=== PATIENT | female | born 1940 | race Two or more races ===

== ENCOUNTER 2021-04-28 18:37 | Emergency (ER) | payer MEDICARE, OTHER ==
[~2021-04-28] VITALS: Ht 157.5 cm; Wt 53.0 kg
--- NOTE | 2021-04-28 18:41 | NUR ---
1820 code neuro paged 182 dr ng paged 182 dr ng spoke with dr vargas 183 pt arrived to ed.
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
[2021-04-28] MEDS ORDERED: OMNIPAQUE 350 MG/ML, 100ML BOTTLE ONE (19:00)
--- NOTE | 2021-04-28 19:07 | NUR ---
PT HAS RETURNED FROM CT WITH JONHSON RN, ASSUMED CARE OF PT, REPORT FROM JOHNSON.
[2021-04-28 19:08] VITALS: BP 153/58
[2021-04-28 19:12] LABS: BASOPHILS % (AUTO) 1 % (0-1); EOSINOPHILS % (AUTO) 4 % (1-7); LYMPHOCYTES % (AUTO) 34 % (22-44); MEAN CORPUSCULAR HEMOGLOBIN 32.4 pg (27.0-34.8); MEAN CORPUSCULAR HGB CONC 33.7 g/dL (32.4-35.8); MONOCYTES % (AUTO) 11 % (2-9); NEUTROPHILS % (AUTO) 51 % (42-75); PLATELET COUNT 274 x10^3/uL (130-400); RED BLOOD COUNT 4.06 x10^6/uL (3.82-5.3); RED CELL DISTRIBUTION WIDTH 13.7 % (9.6-15.2)
--- NOTE | 2021-04-28 19:22 | NUR ---
POC DISCUSSED WITH DR GONZALEZ PT TO TRANSFER TO [facility]
[2021-04-28 19:24] LABS: INTERNATIONAL NORMALIZED RATIO 1.05 (0.93-1.1); PROTHROMBIN TIME 11.2 Seconds (9.6-11.5)
[2021-04-28] MEDS ORDERED: SODIUM CHLORIDE FLUSH 10ML SYR IVF ONE (19:30)
--- NOTE | 2021-04-28 19:35 | NUR ---
PTS DEFICITS RESOLVED SINCE ASSESMENT AND PT CAN NOW MOVE ALL EXTREMITIES AND SPEEK WITHOUT SLURRED SPEECH
--- NOTE | 2021-04-28 19:57 | NUR ---
REPORT TO OUTREACH EDUCATOR AT [facility]
--- NOTE | 2021-04-28 20:10 | NUR ---
[facility] AT BED SIDE FOR TRANSPORT AT THIS TIME PT TRANSFERED TO [facility] AT THIS TIME
== END 2021-04-28 20:17 | disposition short-term general hospital (02) ==
LOC: ED 19:20
DX: I63.311 Cerebral infarction due to thrombosis of right middle cerebral artery (principal)
CPT/HCPCS: 36415; 70450; 70496; 70498; 71045; 80047; 85025; 85610; 85730; 93005; 99291; Q9967